=== PATIENT | female | born 1935 | race Caucasian/White ===

== ENCOUNTER → 2017-02-17 | Outpatient (CLI) | payer MEDICARE ==
[~2017-02-17] MED LIST: HYDR-3714 PO; LYSI500T13 PO; PROP160C2 PO; TRIA1CAP4 PO
== END ==
LOC: ONC 13:25
PROVIDERS: ATTEND Radiology Radiation Oncology
DX: C07 Malignant neoplasm of parotid gland (principal)
CPT/HCPCS: 99213

== ENCOUNTER 2018-02-16 01:52 | Outpatient (RCR) | payer MEDICARE | END 2018-05-17 | disposition home or self-care (01) | LOC: ONC 01:52 | PROVIDERS: ATTEND Radiology Radiation Oncology | DX: C07 Malignant neoplasm of parotid gland (principal) | CPT/HCPCS: 99213 ==

== ENCOUNTER 2019-05-25 13:05 | Outpatient (RCR) | payer MEDICARE | END 2019-08-23 | disposition home or self-care (01) | LOC: ONC 13:05 | PROVIDERS: ATTEND Radiology Radiation Oncology | DX: C07 Malignant neoplasm of parotid gland (principal) | CPT/HCPCS: 99213 ==

== ENCOUNTER → 2021-05-28 | Outpatient (CLI) | payer SELFPAY ==
--- NOTE | 2021-05-28 14:41 | Diagnostic Imaging Report ---
INDICATION: Hypertension CT cardiac calcium score study performed with noncontrast images of the cardiac silhouette followed by calculation of cardiac calcium score. Dose reduction protocol was used. Raw data images demonstrate no discrete pulmonary infiltrates or focal lesions. The visualized portions of the aorta were nonaneurysmal. There is mild atherosclerotic plaquing in the aorta. There is no adenopathy in the visualized portions of the mediastinum. CT cardiac calcium score is as follows, 0 for left main. 5.1 for LAD. 22.7 for circumflex coronary artery. 1.2 for right coronary artery. Total score of 29.0 was given. IMPRESSION: CT cardiac calcium score was 29, compatible with mild overall plaque burden. There were no other incidental findings. Dictated by: Dictated on workstation # [id number]
== END ==
LOC: RAD FS 09:32
PROVIDERS: ATTEND Family Medicine
DX: I10 Essential (primary) hypertension (principal); E78.2 Mixed hyperlipidemia
CPT/HCPCS: 75571